=== PATIENT | male | born 1955 | race Caucasian/White ===

== ENCOUNTER → 2021-07-22 19:49 | Outpatient (CLI) | payer MEDICARE, MEDICAID, SELFPAY | PROVIDERS: Visit Provider Nurse Practitioner Family | DX: Z20.822 Contact with and (suspected) exposure to COVID-19 (principal); U07.1 COVID-19 | CPT/HCPCS: C9803; U0003; U0005 ==

== ENCOUNTER 2021-11-30 09:39 | Inpatient (IN) | payer MEDICARE, MEDICAID, SELFPAY ==
[2021-11-30] VITALS (23 sets, daily range): BP systolic 101–180; BP diastolic 55–82; PULSE 77–107; RESP 16–24; TEMP 36.1–36.7; O2SAT 93–100; BMI 22.8
--- NOTE | 2021-11-30 | IR_ITS ---
APPROVED REPORT Patient Location: Inpatient [facility] Developer: JOHN Matt RT (R) PROCEDURES Drug-eluting stent deployment to the ostial proximal circumflex artery Drug-eluting stent deployment to the left main artery Drug-eluting stent deployment to the ostial proximal and mid LAD INDICATION Non-ST elevation myocardial infarction, Coronary artery disease, Patient is not a surgical candidate SCAI INDICATION Clinical history: 66-year-old gentleman with multiple medical problems transferred from an outside hospital with elevated troponins. Patient has numerous comorbidities. Of interest his identical twin brother within the last 6 months of a myocardial infarction. Patient underwent angiography and was deemed not to be a bypass surgery candidate from the beginning based on his comorbidities. Informed consent was obtained prior to the procedure. COMPLICATIONS None Estimated Blood Loss: Approximately 1 to 1.5 units TECHNIQUE One percent lidocaine used to anesthetize the right anterior aspect of the wrist. The right radial artery was accessed via the Seldinger technique. A 6 Persian sheath was placed in the right radial artery. 2.5 mg of verapamil, 800 mcg of nitroglycerin, 1mg Lidocaine and 5000 U Heparin were given through the arterial sheath. The papa catheter was also used to perform left heart catheterization, left ventriculogram and selective coronary angiogram. At the end the diagnostic angiogram therapeutic heparin was administered and the guide catheter was placed in the left main artery followed by a guide liner. Choice PT extra-support wire was placed in the circumflex artery. Multiple balloons were required in order to predilate the critical stenosis. There was ballooning of both the distal left main artery and the circumflex artery itself in order to deliver balloons and the guide liner. Eventually a 3 mm x 38 mm resolute Bath stent was placed in the mid to proximal circumflex artery and deployed at 20 evangelina. The critical stenosis was reduced to 40%. A 4.5 x 12 mm resolute Bath stent was then placed in the left main artery after there was difficulty getting back into the circumflex artery. There was additional ballooning of the ostium of the circumflex artery back into the left main artery. A 3.5 x 15 mm resolute Malcom stent was then deployed in the circumflex artery extending back into the 4.5 mm stent deployed at 24 evangelina. Following this a wire was placed into the LAD and multiple balloons were used to predilate the calcified stenoses. Eventually a 3 mm x 38 mm resolute Bath stent was deployed in the mid LAD tacking back multiple dissections and calcifications which occurred with ballooning. This was deployed at 20 and then 24 evangelina. An additional 3.5 mm x 15 mm resolute Malcom stent was then deployed in the proximal LAD extending back to the left main artery and deployed at 24 evangelina. The balloon was then advanced into the mid LAD and further postdilated. An additional 3.5 mm balloon was deployed back into the circumflex artery and postdilated the area of interest. This reduce the stenosis to 10%. A 4.5 x 12 mm noncompliant balloon was then deployed at 20 evangelina in the distal left main artery. At the end of the procedure excellent angiographic results were obtained with wide patency of the left main artery LAD and circumflex artery. After achieving excellent angiograph results the apparatus was removed the sheath was removed and hemostasis achieved using TR banding patient was transferred to the postop already in stable condition ANGIOGRAPHIC RESULTS The left main artery Extensively calcified creating an angiographic 50% stenosis but a much greater stenosis based on intralum
--- NOTE | 2021-11-30 10:16 | HMH.CNCARD ---
History of Present Illness Consult date: 11/30/21 Requesting physician: Abhilash Urias Consult reason: chest pain Chief complaint: Shortness of breath, chest pain, elevated troponins Additional Medical History:: 1. History of colon cancer, status post surgery 2. History of liver cancer, status post surgery 3. History of CVA with left side affected approximately 10-15 years ago, taken off of Plavix in the past with reported history of blood transfusion. 4. Tobacco use, continued 5. Hypertension 6. Hyperlipidemia 7. Strong family history of coronary artery disease in his mother (heart attack in her early 70s), twin brother (recently ) and another brother (heart attack in his 50s) 6. DNR 7. Diabetes mellitus, insulin treated History of present illness: 66-year-old white male with 1 month history of increasing shortness of breath was seen in [facility] for evaluation. ER report states life manager found the patient unresponsive and called 911 thinking he was having a stroke. EMS noted blood sugar of 46 on arrival which was treated with D50. ER work-up revealed evidence of right-sided pneumonia per patient with elevated cardiac troponins. Patient was subsequently transferred here to [facility] for cardiology evaluation. Patient denies chest pain at this time but is short of breath with some conversational dyspnea. He relates having cardiac catheterization more than 5 years ago in [place], [place] without need for intervention. He is extremely concerned about his heart due to his twin brother passing away recently from heart disease. EKG and lab work pending at this time. Patient reportedly received full-strength aspirin, 600 mg of Plavix x1 and a dose of azithromycin prior to leaving [facility]. Lab work from [facility] shows hemoglobin of 8.8, hematocrit 30.1, platelets 177,000, WBC 6200, stool Hemoccult negative Sodium 130, potassium 3.9, BUN 11, creatinine 1.1 high-sensitivity troponin initially 60 4 repeat 2 hours later was 56 BNP is [address] of the chest for positive D-dimer showed no evidence of PE or dissection. Mild pneumonia greatest in the right lower lobe. Chronic right pleural thickening and chronic right pleural effusion. EKGs from 2020, yesterday and today shows sinus rhythm (computer reading from EKG on 11/30/2021 reads atrial fibrillation but appears to be sinus rhythm). [facility] History Medical History: Reports:: Cancer, Chronic Obstructive Pulmonary Disease (COPD), Cerebrovascular Accident, Hyperlipidemia, Hypertension *Have you ever received a pneumonia vaccine?: Yes *Have you received a flu vaccine this season?: No Fractures: Yes - *Social History Smoking Status: Current every day smoker Alcohol Intake: never Substance Use Type: denies use *Occupational Status:: disabled *Travel in the last 8 weeks: Inside the [place] Family Hx:: Non-contributory Meds Home Medications Medication Instructions Recorded Confirmed Type atorvastatin 20 mg tablet 20 mg PO HS 07/22/21 11/30/21 History tamsulosin 0.4 mg capsule 0.4 mg PO DAILY 07/22/21 11/30/21 History Fluticasone/Umeclidin/Vilanter 1 puff IH DAILY 11/30/21 11/30/21 History [Trelegy Ellipta 100-62.5-25] Gabapentin [Neurontin 600mg 600 mg PO HS 11/30/21 11/30/21 History tablet] Insulin Glargine,Hum.rec.anlog 36 units SQ HS 11/30/21 11/30/21 History [Lantus Solostar 100 Units/mL 3mL flexpen] Ipratropium/Albuterol Sulfate 3 ml IH Q6HP PRN 11/30/21 11/30/21 History [Duoneb 3mL neb] Pantoprazole Sodium [Protonix 40mg 40 mg PO DAILY 11/30/21 11/30/21 History tablet] lisinopriL [Zestril 10mg Tab] 10 mg PO DAILY 11/30/21 11/30/21 History Allergies Allergy/AdvReac Type Severity Reaction Status Date / Time cefaclor [From [facility]] Allergy Verified 07/22/21 13:37 Exam Vital signs and Labs for Last 24 Hours: Temp Pulse Resp BP Pulse Ox
--- NOTE | 2021-11-30 10:25 | CA_ITS ---
APPROVED REPORT EXAM: Comprehensive 2D, Doppler, and color-flow Echocardiogram Strategic Partner Development Manager: Mary Ahuja RT(R) Ht: 5 ft 9 in Wt: 154lbs BSA: 1.85 BP: 180/73 mmHg Indications: NSTEMI, COPD, smoker, HTN, SOB, hyperlipidemia, elevated troponin, family history of HD, hx CVA, pneumonia, hx liver cancer, hx colon cancer M-Mode Dimensions RVDd 2.06 cm (0.9-2.6) LVDd 4.27 cm (3.5-5.7) LVDs 3.56 cm (3.5-5.7) IVSd 0.82 cm (0.6-1.1) PWd 0.68 cm (0.6-1.1) EF (Teich) 35.10% FS 16.60% EDV (Teich) 81.70 mL ESV (Teich) 53.00 mL Left Ventricle Technically difficult study, limited data is obtained, left atrium is mildly enlarged, left ventricle is normal size, mild concentric left ventricular hypertrophy, estimated ejection fraction approximately 50% with no obvious regional wall motion abnormality in the obtained views. Diastolic parameters are not obtained. Right Ventricle Right atrium and right ventricle are mildly enlarged with normal contractility. Aortic Valve Aortic valve is thickened and calcified, aortic outflow velocities were not obtained. Mitral Valve Mitral valve leaflets are minimally thickened, there is mild mitral regurgitation. Tricuspid Valve Tricuspid valve is grossly normal, there is mild tricuspid regurgitation, tricuspid rotation jet velocity is inadequate for calculation of the right ventricular systolic pressure. Pulmonic Valve Pulmonic valve is poorly visualized. Great Vessels Aortic root is grossly normal size. Inferior vena cava is not visualized. Pericardium No significant pericardial effusion noted. Conclusion 1. Technically difficult and limited study was performed as described above. 2. Visually estimated ejection fraction is 50% with no obvious regional wall motion abnormality, diastolic parameters are not constant. 3. Thickened and calcified aortic valve aortic outflow velocities with no palpitations. 4. Mild mitral and tricuspid regurgitation. 5. If clinically indicated repeat study with full Doppler interrogation is recommended. Electronically signed by : Lorenzo Tay MD 11/30/2021 20:59:24
--- NOTE | 2021-11-30 10:49 | HMH.PHAINT ---
MEDICATION RECONCILIATION COMPLETED ON PATIENT BY USING EXTERNAL FILL HISTORY FROM PHARMACY, RECORDS FROM [facility] [employer], AND PHONE CALL TO [facility] IN [place]. -FRANCO MCCOYD
[2021-11-30 11:05] LABS: Coronavirus 19, PCR Not Detected (NotDetected); Influenza A, PCR Not Detected (NotDetected); Influenza B, PCR Not Detected (NotDetected)
--- NOTE | 2021-11-30 12:57 | HMH.HP ---
*Admission Date: 11/30/21 *Chief complaint: altered mental status *History of present illness: this pt was found at his resident with altered mental status and ems noted low glu and pt was transfered to [facility] and found to have abn card enz and transferred to [facility] for card eval -- male with 1 month history of increasing shortness of breath was seen in [facility] for evaluation. ER report states payroll and benefits manager found the patient unresponsive and called 911 thinking he was having a stroke. EMS noted blood sugar of 46 on arrival which was treated with D50. ER work-up revealed evidence of right-sided pneumonia per patient with elevated cardiac troponins. Patient was subsequently transferred here to [facility] for cardiology evaluation. Patient denies chest pain at this time but is short of breath with some conversational dyspnea. He relates having cardiac catheterization more than 5 years ago in [place], [place] without need for intervention. He is extremely concerned about his heart due to his twin brother passing away recently from heart disease. EKG and lab work pending at this time. Patient reportedly received full-strength aspirin, 600 mg of Plavix x1 and a dose of azithromycin prior to leaving [facility]. Lab work from [facility] shows hemoglobin of 8.8, hematocrit 30.1, platelets 177,000, WBC 6200, stool Hemoccult negative Sodium 130, potassium 3.9, BUN 11, creatinine 1.1 high-sensitivity troponin initially 60 4 repeat 2 hours later was 56 BNP is [address] of the chest for positive D-dimer showed no evidence of PE or dissection. Mild pneumonia greatest in the right lower lobe. Chronic right pleural thickening and chronic right pleural effusion. EKGs from 2020, yesterday and today shows sinus rhythm (computer reading from EKG on 11/30/2021 reads atrial fibrillation but appears to be sinus rhythm). pt with no specific c/o at this time - [facility] History I have reviewed the patient's past medical history: Yes Medical History: Reports:: Cancer, Chronic Obstructive Pulmonary Disease (COPD), Cerebrovascular Accident, Diabetes Mellitus Type 2, Hyperlipidemia, Hypertension Denies:: Diabetes Mellitus Type 1 *Have you ever received a pneumonia vaccine?: Yes *Have you received a flu vaccine this season?: No Fractures: Yes - *Social History Last grade of school completed: GED Smoking Status: Current every day smoker # Packs/Day (cigarettes): 1 Alcohol Intake: never Substance Use Type: denies use *Occupational Status:: disabled Housing: other Household Members: none *Travel in the last 8 weeks: Inside the [place] Family Hx:: Coronary Artery Disease, Heart Attack, Hyperlipidemia, Hypertension Review of Systems - Review of Systems Review of systems:: pertinent systems reviewed and negative unless documented below - Constitutional Denies fever(s) - Eyes Denies change in vision - ENT Denies facial pain - *Cardiovascular Denies chest pain at rest - *Respiratory Reports shortness of breath, Denies cough - *Gastrointestinal Denies abdominal pain - *Genitourinary Denies blood in urine - *Musculoskeletal Denies joint pain - Integumentary/Breasts Denies rash - *Neurologic Denies localized weakness, Denies seizure-like activity - Psychiatric Denies thoughts of hurting/killing others Meds Home Medications Medication Instructions Recorded Confirmed Type atorvastatin 20 mg tablet 20 mg PO HS 07/22/21 11/30/21 History tamsulosin 0.4 mg capsule 0.4 mg PO DAILY 07/22/21 11/30/21 History Fluticasone/Umeclidin/Vilanter 1 puff IH DAILY 11/30/21 11/30/21 History [Trelegy Ellipta 100-62.5-25] Gabapentin [Neurontin 600mg 600 mg PO HS 11/30/21 11/30/21 History tablet] Insulin Glargine,Hum.rec.anlog 36 units SQ HS 11/30/21 11/30/21 History [Lantus Solostar 100 Units/mL 3mL flexpen] Ipratropium/Albuterol Sulfate 3 ml IH Q6HP PRN 11/30/21 0
--- NOTE | 2021-11-30 14:25 | PC.WOUNDNOTE ---
r arm abrasion r leg skin tear l leg bruise
--- NOTE | 2021-11-30 14:41 | HMH.PHAVTE ---
[facility] Pharmacy VTE Monitoring - Patient Demographics Admission date: 11/30/21 Report Date: 11/30/21 Time: 14:41 Allergies/Adverse Reactions: Patient Allergies cefaclor [From Ceclor] Allergy (Verified 07/22/21 13:37) Height: 1.75 m Weight: 70.364 kg Patient Problems: Current Active Problems Non-ST elevation CA (NSTEMI) (Acute) Pneumonia (Acute) Shortness of breath (Acute) COPD (chronic obstructive pulmonary disease) (Acute) Tobacco use (Acute) Hypertension (Acute) Hyperlipidemia (Acute) Family history of early CAD (Acute) History of CVA with residual deficit (Acute) History of colon cancer in adulthood (Acute) History of liver cancer (Acute) IDDM (insulin dependent diabetes mellitus) (Acute) - VTE Risk VTE Score: 1 VTE Risk Level: Low Risk - Prophylaxis VTE Prophylaxis Ordered?: Yes Types of VTE Prophylaxis: TEDS Knee High Location of Applied Device: Bilateral Lower Extremeties
[2021-11-30 15:24] LABS: CATHL Activated Clotting Time 290 SEC (74-125)
--- NOTE | 2021-11-30 15:48 | PC.NURSE ---
at admission patient arrived in stable condition. went down to cathlab at 1300. some wheezing noted. stated he felt off with his breathing. no other complaints noted. l sided weakness from previous stroke, states he uses motorized scooter at home. [facility] in [facility]. vitals stable.
[2021-11-30 15:49] LABS: Microscopic, Urine URINE MICROSCOPIC (MICROSCOPIC)
[2021-11-30 15:52] LABS: Appearance,Urine CLEAR (Clear); Bilirubin,Urine Negative (Negative); Blood, Urine Negative (Negative); Color,Urine YELLOW (Yellow); Glucose,Urine (UA) Negative (Negative); Ketones,Urine Negative (Negative); Leukocyte Esterase,Urine 1+ (Negative); Nitrate,Urine POSITIVE (Negative); PH,Urine 6.5 (5.0-8.5); Protein,Urine Negative (Negative); Specific Gravity, Urine <= 1.005 (1.005-1.030); Urobilinogen,Urine 0.2 EU/dl (0.2)
[2021-11-30 16:23] LABS: POC Glucose,Bedside 220 (70-110)
[2021-11-30 18:19] LABS: Bacteria,Urine 2+ /lpf
[2021-11-30 18:21] LABS: Yeast,Urine 1+ /lpf
--- NOTE | 2021-11-30 18:34 | PC.NURSE ---
Addendum entered by Keisha Bonilla RN 11/30/21 18:43: Patient received from lab tech with pete catheter placed. Melodie in lab tech stated pete was already placed by lab tech. Original Note: Patient very sedated upon arrival from lab tech after left heart cath. Patient would moan and barely arouse after being slightly shaken. FSBS obtained and blood sugar 220. No coverage provided due to patient's level of lethargy and problem with hypoglycemia before arrival. Patient became increasingly agitated as anesthesia began to wear off and patient very confused began to try and get out of bed. Patient also began to take right arm with tr band still in place and began to use arm to beat against bed rail, pull his catheter, push away staff. One on one sitter initiated and Dr. Rahman paged. Haldol 5 mg im given once and patient began to calm down but quickly became agitated again. Dr. Rahman paged agin and ativan 2 mg iv ordered and given. Patient began to physically calm down. VS remained stable during process however respiratory rate remained high in low 20's with audible wheezing which began to calm after haldol and ativan administration.
[2021-12-01] VITALS (23 sets, daily range): BP systolic 90–125; BP diastolic 40–73; PULSE 84–106; RESP 16–22; TEMP 36.7–37.4; O2SAT 91–100; BMI 22.4
[2021-12-01 07:26] LABS: Basophils % 0.2 % (0.1-2.0); Hematocrit 28.2 % (42.0-52.0); Hemoglobin 8.6 g/dL (14.1-18.0); Lymphocytes # 0.7 K/mm3 (0.7-4.5); Mean Corpuscular HGB Conc 30.3 g/dL (31.8-35.4); Mean Corpuscular Hemoglobin 25.3 pg (27.0-31.2); Mean Corpuscular Volume 83.5 fl (80-94); Mean Platelet Volume 7.8 fl (7.4-10.4); Monocytes # 0.6 K/mm3 (0.1-1.0); Monocytes % 6.9 % (1.7-9.3); Neutrophils # 6.9 K/mm3 (1.8-7.8); Platelet Count 364 K/mm3 (142-424); Red Blood Count 3.38 M/mm3 (4.60-6.20); Red Cell Distribution Width 15.6 % (11.5-17.5); White Blood Count 8.2 K/mm3 (4.8-10.8)
[2021-12-01 07:33] LABS: Anion Gap 9.2 mEq/L (5-15); Blood Urea Nitrogen 22 mg/dl (9-20); Calcium 8.7 mg/dl (8.4-10.2); Carbon Dioxide 34 mmol/L (22.0-30.0); Chloride 93 mmol/L (98-107); Chol/HDL Ratio 2.7 (1-3.5); Cholesterol 82 mg/dl (140-200); Creatinine Clearance Estimated 54 mL/min (50-200); Estimated Glomerular Filt Rate 55 ml/min (>60); GFR (African American) 67 ML/MIN (>60); Glucose 122 mg/dl (74-100); HDL Cholesterol 30 mg/dl (40-60); Magnesium 1.7 mg/dl (1.6-2.3); Potassium 5.2 mmoL/L (3.5-5.1); Sodium 131 mmol/L (136-145); Triglycerides 77 mg/dl (30-150); VLDL Cholesterol 15 mg/dL (0-40)
[2021-12-01 07:43] LABS: Direct LDL Cholesterol 30.68 mg/dL (100-129)
--- NOTE | 2021-12-01 08:26 | HMH.PNCARD ---
Subjective Date: 12/01/21 Time: 08:26 Principal diagnosis: NSTEMI Interval history: 66-year-old white male in bed in no acute distress. Audible wheezing noted. His sister is at his bedside. Results of his cardiac catheterization and stenting were explained to the patient and the sister with all questions answered. Hemoglobin this morning is 8.6. Exam Vital signs and Labs for Last 24 Hours: Temp Pulse Resp BP Pulse Ox 98.1 F 106 H 19 125/61 91 L 12/01/21 08:00 12/01/21 08:00 12/01/21 08:00 12/01/21 08:00 12/01/21 08:00 Laboratory Results - last 24 hr 11/30/21 10:40: Urine Color Yellow, Urine Appearance Clear, Urine pH 6.5, Ur Specific Anderson <= 1.005, Urine Protein Negative, Urine Glucose (UA) Negative, Urine Ketones Negative, Urine Blood Negative, Urine Nitrate Positive, Urine Bilirubin Negative, Urine Urobilinogen 0.2, Ur Leukocyte Esterase 1+ A, Urine RBC None, Urine WBC 10-20, Ur Squamous Epith Cells None, Urine Bacteria 2+, Urine Yeast 1+ 11/30/21 10:58: SARS-CoV-2 (PCR) Not detected, Influenza A Untype (PCR) Not detected, Influenza Type B (PCR) Not detected 11/30/21 13:47: Activated Clotting Time 290 H* 11/30/21 16:06: POC Glucose 220 H 11/30/21 16:10: Blood Type A Positive, Antibody Screen Negative, Crossmatch (AHG) See Detail 11/30/21 17:20: Blood Type Confirm A Positive 12/01/21 06:09: WBC 8.2, RBC 3.38 L, Hgb 8.6 L, Hct 28.2 L, MCV 83.5, MCH 25.3 L, MCHC 30.3 L, RDW 15.6, Plt Count 364, MPV 7.8, Neut % (Auto) 84.0 H, Lymph % (Auto) 9.0 L, [place] % (Auto) 6.9, Eos % (Auto) 0.0 L, Baso % (Auto) 0.2, Neut # (Auto) 6.9, Lymph # (Auto) 0.7, [place] # (Auto) 0.6, Eos # (Auto) 0.0, Baso # (Auto) 0.0 12/01/21 06:09: Sodium 131 L, Potassium 5.2 H, Chloride 93 L, Carbon Dioxide 34 H, Anion Gap 9.2, BUN 22 H, Creatinine 1.30 H, Estimated Creat Clear 54, Estimated GFR 55 L, Est GFR ( Amer) 67, Glucose 122 H, Calcium 8.7, Magnesium 1.7, Triglycerides 77, Cholesterol 82 L, LDL Cholesterol Direct 30.68 L, VLDL Cholesterol 15, HDL Cholesterol 30 L, Cholesterol/HDL Ratio 2.7 I & O for Last 24 hours: Intake & Output 11/28/21 11/29/21 11/30/21 12/01/21 11:59 11:59 11:59 11:59 Output Total 1150 / 1150 Balance -1150 / -1150 Weight 155 lb 2 oz 151 lb 12.8 oz - Constitutional no acute distress - *Routine Respiratory Exam Present: rhonchi, wheezes - *Routine Cardiovascular Exam Present: RRR - *Routine Extremities Exam Absent: cyanosis, clubbing, edema Progress Note: A&P (1) Non-ST elevation IL (NSTEMI) Status: Acute (2) Pneumonia Status: Acute (3) Shortness of breath Status: Acute (4) COPD (chronic obstructive pulmonary disease) Status: Acute (5) Tobacco use Status: Acute (6) Hypertension Status: Acute (7) Hyperlipidemia Status: Acute (8) Family history of early CAD Status: Acute (9) History of CVA with residual deficit Status: Acute (10) History of colon cancer in adulthood Status: Acute (11) History of liver cancer Status: Acute (12) IDDM (insulin dependent diabetes mellitus) Status: Acute Assessment and Plan for All Diagnoses:: 1. NSTEMI, s/p multiple SARITHA to left main, LAD and circumflex arteries. Chronic RCA occlusion with [id number] collaterals noted. Patient on aspirin and Plavix. Echo EF 50% without wall motion abnormalities. 2. Pneumonia, defer to PCP 3. Continued tobacco use, COPD 4. Hypertension, continue lisinopril. We will hold off on beta-sekou at this time due to wheezing and shortness of breath. 5. Hyperlipidemia, continue statin therapy. 6. Anemia, transfuse 2 units PRBC's. Will give lasix after each dose.
--- NOTE | 2021-12-01 11:11 | HMH.ACPN2 ---
Internal Medicine - PN: Subj *Date: 12/01/21 *Time: 09:10 Interval history: pt laying in bed, Exam Vital signs and Labs for Last 24 Hours: Temp Pulse Resp BP Pulse Ox 99.2 F 98 H 20 92/52 L 93 L 12/01/21 11:05 12/01/21 11:05 12/01/21 11:05 12/01/21 11:05 12/01/21 11:05 Laboratory Results - last 24 hr 11/30/21 10:40: Urine Color Yellow, Urine Appearance Clear, Urine pH 6.5, Ur Specific [place] <= 1.005, Urine Protein Negative, Urine Glucose (UA) Negative, Urine Ketones Negative, Urine Blood Negative, Urine Nitrate Positive, Urine Bilirubin Negative, Urine Urobilinogen 0.2, Ur Leukocyte Esterase 1+ A, Urine RBC None, Urine WBC 10-20, Ur Squamous Epith Cells None, Urine Bacteria 2+, Urine Yeast 1+ 11/30/21 10:58: SARS-CoV-2 (PCR) Not detected, Influenza A Untype (PCR) Not detected, Influenza Type B (PCR) Not detected 11/30/21 13:47: Activated Clotting Time 290 H* 11/30/21 16:06: POC Glucose 220 H 11/30/21 16:10: Blood Type A Positive, Antibody Screen Negative, Crossmatch (AHG) See Detail 11/30/21 17:20: Blood Type Confirm A Positive 12/01/21 06:09: WBC 8.2, RBC 3.38 L, Hgb 8.6 L, Hct 28.2 L, MCV 83.5, MCH 25.3 L, MCHC 30.3 L, RDW 15.6, Plt Count 364, MPV 7.8, Neut % (Auto) 84.0 H, Lymph % (Auto) 9.0 L, [place] % (Auto) 6.9, Eos % (Auto) 0.0 L, Baso % (Auto) 0.2, Neut # (Auto) 6.9, Lymph # (Auto) 0.7, [place] # (Auto) 0.6, Eos # (Auto) 0.0, Baso # (Auto) 0.0 12/01/21 06:09: Sodium 131 L, Potassium 5.2 H, Chloride 93 L, Carbon Dioxide 34 H, Anion Gap 9.2, BUN 22 H, Creatinine 1.30 H, Estimated Creat Clear 54, Estimated GFR 55 L, Est GFR ( Amer) 67, Glucose 122 H, Calcium 8.7, Magnesium 1.7, Triglycerides 77, Cholesterol 82 L, LDL Cholesterol Direct 30.68 L, VLDL Cholesterol 15, HDL Cholesterol 30 L, Cholesterol/HDL Ratio 2.7 I & O for Last 24 hours: Intake & Output 11/28/21 11/29/21 11/30/21 12/01/21 11:59 11:59 11:59 11:59 Intake Total 120 / 120 Output Total 1150 / 1150 Balance -1030 / -1030 Weight 155 lb 2 oz 151 lb 12.8 oz - Constitutional no acute distress - *Routine HEENT Exam Head: Present: normocephalic Eye: Present: PERRL ENT: Present: mucous membranes moist - *Routine Neck Exam Present: supple. Absent: lymphadenopathy - *Routine Respiratory Exam Present: rhonchi, wheezes - *Routine Cardiovascular Exam Present: RRR - *Routine Abdominal Exam Present: soft, normoactive bowel sounds. Absent: tenderness - *Routine Extremities Exam Present: normal capillary refill. Absent: cyanosis, clubbing, edema Comments: left weakness old cva - *Routine Skin Exam Present: warm. Absent: rash - *Routine Neurological Exam Present: alert, oriented X3 Assessment and Plan (1) Non-ST elevation FL (NSTEMI) Status: Acute Category: Medical Code(s): I21.4 - Non-ST elevation (NSTEMI) myocardial infarction (2) Pneumonia Status: Acute Category: Medical Code(s): J18.9 - Pneumonia, unspecified organism (3) Shortness of breath Status: Acute Category: Medical Code(s): R06.02 - Shortness of breath (4) COPD (chronic obstructive pulmonary disease) Status: Acute Category: Medical Code(s): J44.9 - Chronic obstructive pulmonary disease, unspecified (5) Tobacco use Status: Acute Category: Social Hx Code(s): Z72.0 - Tobacco use (6) Hypertension Status: Acute Category: Medical Code(s): I10 - Essential (primary) hypertension (7) Hyperlipidemia Status: Acute Category: Medical Code(s): E78.5 - Hyperlipidemia, unspecified (8) Family history of early CAD Status: Acute Category: Medical Code(s): Z82.49 - Family history of ischemic heart disease and other diseases of the circulatory system (9) History of CVA with residual deficit Status: Acute Category: Medical Code(s): I69.30 - Unspecified sequelae of cerebral infarction (10) History of colon cancer in adulthood Status: Acute Category: Medical Code(s): Z85.038 - Personal history of
[2021-12-01 12:05] LABS: POC Glucose,Bedside 157 (70-110)
[2021-12-01 13:17] LABS: POC Glucose,Bedside 137 (70-110)
[2021-12-01 13:17] LABS: POC Glucose,Bedside 259 (70-110)
--- NOTE | 2021-12-01 16:09 | PC.NURSE ---
Verified w/TOSHA Lacey to go ahead and give 2nd unit of PRBC's
[2021-12-01 16:44] LABS: POC Glucose,Bedside 136 (70-110)
--- NOTE | 2021-12-01 20:03 | PC.NURSE ---
Addendum entered by Hina Sierra RN 12/01/21 20:34: actual time was 725 pm/1924 Original Note: [id number] - entry clerk called and requested me to check on patient as his heart rhythm had changed and heart rate had dropped to the 30's on telemetry. Myself and Ramírez Aguirre RN went in to check on patient. He stated he felt fine but needed help with the urinal. He was hooked up to a data scope in the room, HR said 70's. I attempted to help pt with the urinal when his HR dropped to the 30's again.was verified. Rapid response was called, DNR status was verified. Then pt went unresponsive and asystole on telemetry. Family was called and notified immediately. Dr Vaughn was at bedside and pronounced tod as 1940.
--- NOTE | 2021-12-01 20:15 | PC.NURSE ---
Dr Ortiz tonger for Dr Urias, notified of pts
--- NOTE | 2021-12-01 20:31 | PC.NURSE ---
Dr Tompkins notified of pts passing
--- NOTE | 2021-12-01 23:03 | PC.NURSE ---
body released to home @ this time.
--- NOTE | 2021-12-02 01:10 | PC.NURSE ---
LATE ENTRY: [facility] was contacted at 2017. [facility] released the body at [id number] Gu was the [facility] coordinator this RN spoke with. .
--- NOTE | 2021-12-13 14:19 | HMH.DCSUM ---
General - General Admission date:: 11/30/21 Discharge date: 12/13/21 HPI HPI: this pt was found at his resident with altered mental status and ems noted low glu and pt was transfered to [facility] and found to have abn card enz and transferred to [facility] for card eval -- male with 1 month history of increasing shortness of breath was seen in [facility] for evaluation. ER report states clinical statistics manager found the patient unresponsive and called 911 thinking he was having a stroke. EMS noted blood sugar of 46 on arrival which was treated with D50. ER work-up revealed evidence of right-sided pneumonia per patient with elevated cardiac troponins. Patient was subsequently transferred here to [facility] for cardiology evaluation. Patient denies chest pain at this time but is short of breath with some conversational dyspnea. He relates having cardiac catheterization more than 5 years ago in [place], [place] without need for intervention. He is extremely concerned about his heart due to his twin brother passing away recently from heart disease. EKG and lab work pending at this time. Patient reportedly received full-strength aspirin, 600 mg of Plavix x1 and a dose of azithromycin prior to leaving [facility]. Lab work from [facility] shows hemoglobin of 8.8, hematocrit 30.1, platelets 177,000, WBC 6200, stool Hemoccult negative Sodium 130, potassium 3.9, BUN 11, creatinine 1.1 high-sensitivity troponin initially 60 4 repeat 2 hours later was 56 BNP is [address] of the chest for positive D-dimer showed no evidence of PE or dissection. Mild pneumonia greatest in the right lower lobe. Chronic right pleural thickening and chronic right pleural effusion. EKGs from 2020, yesterday and today shows sinus rhythm (computer reading from EKG on 11/30/2021 reads atrial fibrillation but appears to be sinus rhythm). pt with no specific c/o at this time - Hospital Course Hospital Course: Abnormal Labs 11/30/21 11/30/21 11/30/21 10:40 13:47 16:06 RBC Hgb Hct MCH MCHC Neut % (Auto) Lymph % (Auto) Eos % (Auto) Activated Clotting Time 290 H* Sodium Potassium Chloride Carbon Dioxide BUN Creatinine Estimated GFR Glucose POC Glucose 220 H Cholesterol LDL Cholesterol Direct HDL Cholesterol Ur Leukocyte Esterase 1+ A Crossmatch (AHG) 11/30/21 11/30/21 12/01/21 16:10 21:44 06:09 RBC 3.38 L Hgb 8.6 L Hct 28.2 L MCH 25.3 L MCHC 30.3 L Neut % (Auto) 84.0 H Lymph % (Auto) 9.0 L Eos % (Auto) 0.0 L Activated Clotting Time Sodium Potassium Chloride Carbon Dioxide BUN Creatinine Estimated GFR Glucose POC Glucose 259 H Cholesterol LDL Cholesterol Direct HDL Cholesterol Ur Leukocyte Esterase Crossmatch ([facility]) See Detail 12/01/21 12/01/21 12/01/21 06:09 07:00 11:58 RBC Hgb Hct MCH MCHC Neut % (Auto) Lymph % (Auto) Eos % (Auto) Activated Clotting Time Sodium 131 L Potassium 5.2 H Chloride 93 L Carbon Dioxide 34 H BUN 22 H Creatinine 1.30 H Estimated GFR 55 L Glucose 122 H POC Glucose 137 H 157 H Cholesterol 82 L LDL Cholesterol Direct 30.68 L HDL Cholesterol 30 L Ur Leukocyte Esterase Crossmatch ([facility]) 12/01/21 16:35 RBC Hgb Hct MCH MCHC Neut % (Auto) Lymph % (Auto) Eos % (Auto) Activated Clotting Time Sodium Potassium Chloride Carbon Dioxide BUN Creatinine Estimated GFR Glucose POC Glucose 136 H Cholesterol LDL Cholesterol Direct HDL Cholesterol Ur Leukocyte Esterase Crossmatch ([facility]) Microbiology 11/30/21 16:10 Blood Blood Culture - Final NO GROWTH AFTER 5 DAYS 11/30/21 16:10 Blood Blood Culture - Final NO GROWTH AFTER 5 DAYS 11/30/21
== END 2021-12-01 23:03 | disposition expired | DRG 246 ==
PROVIDERS: Internal Medicine; Admitting Provider Emergency Medicine; Visit Provider Emergency Medicine
PROC: 027337Z Dilation of Coronary Artery, Four or More Arteries with Four or More Drug-eluting Intraluminal Devices, Percutaneous Approach (ICD-10-PCS; principal; 2021-11-30 11:45)
DX: I21.4 Non-ST elevation (NSTEMI) myocardial infarction (principal); J18.9 Pneumonia, unspecified organism; J44.0 Chronic obstructive pulmonary disease with (acute) lower respiratory infection; I10 Essential (primary) hypertension; E78.5 Hyperlipidemia, unspecified; I69.30 Unspecified sequelae of cerebral infarction; Z85.038 Personal history of other malignant neoplasm of large intestine; Z85.05 Personal history of malignant neoplasm of liver; E11.9 Type 2 diabetes mellitus without complications; Z79.4 Long term (current) use of insulin; D64.9 Anemia, unspecified; Z72.0 Tobacco use; I25.10 Atherosclerotic heart disease of native coronary artery without angina pectoris
CPT/HCPCS: 36415; 80048; 80061; 81001; 82962; 83735; 85025; 85347; 86850; 87040; 87086; 92928; 92941; 93306; 93458; 94640; 94760; 99152; 99153; C1725; C1769; C1874; C1876; C9600; C9606; C9803; J1644; J1956; P9016; Q9967; U0003; U0005